=== PATIENT | female | born 1940 | race Caucasian/White ===

== ENCOUNTER 2017-05-24 16:26 | Observation (INO) | payer MEDICARE ==
[~2017-05-24] VITALS: Ht 167.6 cm; Wt 57.0 kg
[2017-05-24] VITALS (7 sets, daily range): BP systolic 154–195; BP diastolic 72–87; PULSE 41–60; RESP 16–20; TEMP 98.7; O2SAT 95–99
[2017-05-24] MEDS ORDERED: HYDR-3115 PO (16:56)
[2017-05-24] MEDS ORDERED: BUPR150CR PO (16:56)
[2017-05-24] MEDS ORDERED: CARV12.5 PO (16:56)
[2017-05-24] MEDS ORDERED: [UNRECOGNIZED DRUG - OTHER] PO (16:56)
[2017-05-24] MEDS ORDERED: CARD180C5 PO (16:56)
[2017-05-24] MEDS ORDERED: COUM3TAB PO (16:56)
[2017-05-24] MEDS ORDERED: PRED5TAB PO (16:56)
[2017-05-24] MEDS ORDERED: SODIUM CHLORIDE 0.9% FLUSH 10 ML FLUSH IVF PRN (17:00)
--- NOTE | 2017-05-24 17:04 | PD ---
HPI Chief Complaint: Cardiac Complaint Time Seen by Provider: 16:51 Travel History International Travel<30 days: No Contact w/Intl Traveler<30days: No Traveled to known affect area: No History of Present Illness HPI 76-year-old female presents by ambulance for low heart rate. Her heart rate has been in the 40s. She states this morning she awoke at 4 AM when she felt like she was in atrial fibrillation so she took her Cardizem early at that time even though she had just taken it at 8 PM and usually only takes it once at night. She states that she's done that before when she had the symptoms that she had this morning. She states she had pain in her shoulder that lasted about 20 minutes and has no pain now. She went to an urgent care and they referred her here for further care. She denies any other concurrent complaints. She is visiting from [place]. [facility] Past Medical History Arthritis: Yes Atrial Fibrillation: Yes Depression: Yes Tetanus Vaccination: Unknown Influenza Vaccination: No ?: Not Menopausal: Yes Past Surgical History Appendectomy: Yes Other Surgery: Yes (ablation September last year) Social History Alcohol Use: No Tobacco Use: No Substance Use: No Allergies-Medications (Allergen,Severity, Reaction): Coded Allergies: azithromycin (Verified Allergy, Severe, rash, 05/24/17) codeine (Verified Allergy, Severe, rash, 05/24/17) Reported Meds & Prescriptions Reported Meds & Active Scripts Active Reported Prednisone 5 Mg Tab 5 Mg PO DAILY Vicodin Hp (Hydrocodone-Acetaminophen) 10-300 Tab 1 Tab PO BID PRN Coreg (Carvedilol) 12.5 Mg Tab 12.5 Mg PO BID Coumadin (Warfarin) 3 Mg Tab 3 Mg PO DAILY [tekazin] 500 Mg PO BID Cardizem CD 24 HR (Diltiazem CD 24 HR) 180 Mg Caper 180 Mg PO DAILY Review of Systems Except as stated in HPI: all other systems reviewed are Neg Physical Exam Narrative GENERAL: Well-nourished, well-developed patient. SKIN: Warm and dry. HEAD: Normocephalic and atraumatic. EYES: No injection or drainage. ENT: No nasal drainage noted. NECK: Supple, trachea midline. CARDIOVASCULAR: Bradycardic rate and regular rhythm RESPIRATORY: Breath sounds equal bilaterally. No accessory muscle use. GASTROINTESTINAL: Abdomen soft, non-tender, nondistended. EXTREMITIES: No edema. NEUROLOGICAL: Awake and alert. Motor and sensory grossly within normal limits. Normal speech. Data Data Last Documented VS Vital Signs Date Time Temp Pulse Resp B/P (MAP) Pulse Ox O2 Delivery O2 Flow Rate FiO2 05/24/17 16:51 Nasal Cannula 2.00 05/24/17 16:49 98.7 41 17 154/72 (99) 97 Orders Orders Electrocardiogram (05/24/17 16:58) Ckmb (Isoenzyme) Profile (05/24/17 16:58) Complete Blood Count With Diff (05/24/17 16:58) Comprehensive Metabolic Panel (05/24/17 16:58) Magnesium (Mg) (05/24/17 16:58) Prothrombin Time / Inr (Pt) (05/24/17 16:58) Act Partial Throm Time (Ptt) (05/24/17 16:58) Troponin I (05/24/17 16:58) Chest, Single Ap (05/24/17 16:58) Ecg Monitoring (05/24/17 16:58) Bilateral Bp Monitoring (05/24/17 16:58) Iv Access Insert/Monitor (05/24/17 16:58) Oximetry (05/24/17 16:58) Sodium Chloride 0.9% Flush (Ns Flush) (05/24/17 17:00) Consult Cardiology (05/24/17 ) (Hub Use Only)Inp Phy Cons/Ref (05/24/17 ) Admit Order (Ed Use Only) (05/24/17 18:08) Labs Laboratory Tests Test 05/24/17 17:00 White Blood Count 10.1 TH/MM3 Red Blood Count 3.80 MIL/MM3 Hemoglobin 10.9 GM/DL Hematocrit 32.8 % Mean Corpuscular Volume 86.4 FL Mean Corpuscular Hemoglobin 28.8 PG Mean Corpuscular Hemoglobin Concent 33.3 % Red Cell Distribution Width 13.9 % Platelet Count 290 TH/MM3 Mean Platelet Volume 7.8 FL Neutrophils (%) (Auto) 75.9 % Lymphocytes (%) (Auto) 15.0 % Monocytes (%) (Auto) 5.7 % Eosinophils (%) (Auto) 2.9 % Basophils (%) (Auto) 0.5 % Neutrophils # (Auto) 7.7 TH/MM3 Lymphocytes # (Auto) 1.5 TH/MM3 Monocytes # (Auto) 0.6 TH/MM3 Eosinophils # (Auto) 0.3 TH/MM3 Basophils # (Auto) 0.0 TH/MM3 CBC Comment DIFF FINAL Differential Comment Prothrombin Time 22.0 SEC Prothromb Time International Ratio 1.9 RATIO Activated Partial Thromboplast Time 36.9 SEC Blood Urea Nitrogen 31 MG/DL Creatinine 1.31 MG/DL Random Glucose 102 MG/DL Total Protein 6.9 GM/DL Albumin 3.3 GM/DL Calcium Level 9.0 MG/DL Magnesium Level 1.9 MG/DL Alkaline Phosphatase 104 U/L Aspartate Amino Transf (AST/SGOT) 24 U/L Alanine Aminotransferase (ALT/SGPT) 23 U/L Total Bilirubin 0.2 MG/DL Sodium Level 138 MEQ/L Potassium Level 4.8 MEQ/L Chloride Level 104 MEQ/L Carbon Dioxide Level 29.1 MEQ/L Anion Gap 5 MEQ/L Estimat Glomerular Filtration Rate 39 ML/MIN Total Creatine Kinase 78 U/L Troponin I LESS THAN 0.02 NG/ML MDM Medical Decision Making Medical Screen Exam Complete: Yes Emergency Medical Condition: Yes Interpretation(s) EKG is sinus bradycardia at 45 without STEMI criteria CBC & BMP Diagram 05/24/17 17:00 Total Protein 6.9, Albumin 3.3 L, Calcium Level 9.0, Magnesium Level 1.9, Alkaline Phosphatase 104, Aspartate Amino Transf (AST/SGOT) 24, Alanine Aminotransferase (ALT/SGPT) 23, Total Bilirubin 0.2 Differential Diagnosis Overmedication, A. fib, LA, electrolyte abnormality Narrative Course Will check blood work, EKG, chest x-ray and monitor. Patient currently without hypotension or chest pain or shortness of breath so we will hold atropine and discuss with cardiology labs without emergent findings, still bradycardic in the 40s, will discuss with cardiology and monitor in the hospital, patient agrees to plan Physician Communication Physician Communication dr smith states will follow dr osman agrees to admit Diagnosis Primary Impression: Bradycardia Jonelle Daigle MD May 24, 2017 17:04
[2017-05-24 17:17] LABS: AUTOMATED NEUTROPHIL # 7.7 TH/MM3 (1.8-7.7); BASOPHIL % 0.5 % (0.0-2.0); EOSINOPHIL # 0.3 TH/MM3 (0-0.4); EOSINOPHIL % 2.9 % (0.0-4.0); HEMATOCRIT 32.8 % (35.0-46.0); HEMO FLAGS DIFF FINAL; LYMPHOCYTE # 1.5 TH/MM3 (1.0-4.8); MEAN CELL VOLUME 86.4 FL (80.0-100.0); MEAN CORPUSCULAR HEMOGLOBIN 28.8 PG (27.0-34.0); MEAN CORPUSCULAR HGB CONC 33.3 % (32.0-36.0); MONO % 5.7 % (0.0-8.0); NEUT % 75.9 % (16.0-70.0); PLATELET COUNT 290 TH/MM3 (150-450); RED CELL DISTRIBUTION WIDTH 13.9 % (11.6-17.2); WHITE BLOOD COUNT 10.1 TH/MM3 (4.0-11.0)
--- NOTE | 2017-05-24 17:24 | RADRPT ---
EXAM DATE/TIME: 05/24/2017 17:01 [facility] COMPARISON: No previous studies available for comparison. INDICATIONS : Irregular heart rate starting this morning MEDICAL HISTORY : Atrial fibrillation SURGICAL HISTORY : None. ENCOUNTER: Initial ACUITY: 1 day PAIN SCORE: 0/10 LOCATION: Bilateral chest FINDINGS: Mild interstitial prominence, most notably in the lung bases bilaterally. Cardiac mediastinal contour s are within normal limits. Bilateral peripherally calcified breast implants. Bony thorax is intact. CONCLUSION: 1. Mild lower lobe predominant interstitial prominence of unknown chronicity given lack of prior exam s. 2. Otherwise, no acute cardiopulmonary disease. Antonio Sears MD on May 24, 2017 at 17:21 Board Certified Radiologist. This report was verified electronically.
[2017-05-24 17:36] LABS: ANION GAP 5 MEQ/L (5-15); AST (GOT) 24 U/L (15-37); BICARBONATE 29.1 MEQ/L (21.0-32.0); BLOOD UREA NITROGEN 31 MG/DL (7-18); CHLORIDE 104 MEQ/L (98-107); GLOMERULAR FILTRATION RATE 39 ML/MIN (>89); MAGNESIUM 1.9 MG/DL (1.5-2.5); POTASSIUM 4.8 MEQ/L (3.5-5.1); SODIUM (NA) 138 MEQ/L (136-145)
[2017-05-24 17:37] LABS: ALT (GPT) 23 U/L (10-53)
[2017-05-24 17:40] LABS: APTT (PATIENT) 36.9 SEC (24.3-30.1); INTERNATIONAL NORMALIZED RATIO 1.9 RATIO
[2017-05-24 17:41] LABS: ALKALINE PHOSPHATASE 104 U/L (45-117); TOTAL BILIRUBIN ADULT 0.2 MG/DL (0.2-1.0)
[2017-05-24 17:48] LABS: CREATINE KINASE 78 U/L (26-192)
--- NOTE | 2017-05-24 18:16 | HHI.HP ---
HPI Service [facility] Primary Care Physician Non-Staff Admission Diagnosis Diagnoses: Chief Complaint: Atrial Fibrillation Travel History International Travel<30 Days: No Contact w/Intl Traveler <30 Da: No Traveled to Known Affected Are: No History of Present Illness This is a pleasant 76 y/o Female who was brought in by EMS, due to Bradycardia, she is been on the 40s, She states this morning she awoke at 4 AM when she felt like she was in atrial fibrillation so she took her Cardizem early at that time even though she had just taken it at 8 PM and usually only takes it once at night. She states that she's done that before when she had the symptoms that she had this morning. She states she had pain in her shoulder that lasted about 20 minutes and has no pain now. She went to an urgent care and they referred her here for further care. She denies any other concurrent complaints. She is visiting from [place] Seen in her bedroom in the presence of her Daughter Mrs. Shyann Gustafson, no complaint at this time, but confirm the story told to the ER physician Review of Systems Constitutional: DENIES: Fever, Chills, Change in appetite Endocrine: DENIES: Heat/cold intolerance Eyes: DENIES: Blurred vision, Eye pain Except as stated in HPI: all other systems reviewed are Neg Past Family Social History Past Medical History OA Atrial Fibrillation Depression Dermatomyositis Past Surgical History Appendectomy Ablation September last year Cataract surgery tonsillectomy Breast augmentation PIPER Reported Medications Reported Meds & Active Scripts Active Reported Prednisone 5 Mg Tab 5 Mg PO DAILY Vicodin Hp (Hydrocodone-Acetaminophen) 10-300 Tab 1 Tab PO BID PRN Coreg (Carvedilol) 12.5 Mg Tab 12.5 Mg PO BID Coumadin (Warfarin) 3 Mg Tab 3 Mg PO DAILY [tekazin] 500 Mg PO BID Cardizem CD 24 HR (Diltiazem CD 24 HR) 180 Mg Caper 180 Mg PO DAILY Allergies: Coded Allergies: azithromycin (Verified Allergy, Severe, rash, 05/24/17) codeine (Verified Allergy, Severe, rash, 05/24/17) Active Ordered Medications Current Medications Medications (Trade) Dose Ordered Sig/Shanthi Route Start Time Stop Time Status Last Admin (NS Flush) 2 ml UNSCH PRN IVF 05/24/17 17:00 (Wellbutrin Sr) 150 mg Q12HR PO 05/24/17 21:00 (Martin 10-325 Mg) 1 tab BID PRN PO 05/24/17 18:30 UNV (Deltasone) 5 mg DAILY PO 05/25/17 09:00 (Coumadin) 3 mg DAILY@1600 PO 05/25/17 16:00 Sodium Chloride 1,000 ml @ 83 mls/hr Q12H3M IV 05/24/17 19:00 (NS Flush) 2 ml BID IV FLUSH 05/24/17 21:00 (Tylenol) 650 mg Q4H PRN PO 05/24/17 18:30 (Zofran Inj) 4 mg Q6H PRN IVP 05/24/17 18:30 (Heparin Inj) 5,000 units Q12H SQ 05/24/17 20:00 (Narcan Inj) 0.4 mg UNSCH PRN IV PUSH 05/24/17 18:30 (Christy-Colace) 1 tab BID PO 05/24/17 21:00 (Milk Of Magnesia Liq) 30 ml Q12H PRN PO 05/24/17 18:30 (Senokot) 17.2 mg Q12H PRN PO 05/24/17 18:30 (Dulcolax Supp) 10 mg DAILY PRN RECTAL 05/24/17 18:30 (Lactulose Liq) 30 ml DAILY PRN PO 05/24/17 18:30 (Coumadin Booklet) 1 ONCE ONCE OTHER 05/25/17 16:00 05/25/17 16:01 Family History Father and Brother with ACS Mother with DM II Social History Lives by her self Denies any toxic habits. Physical Exam Vital Signs Vital Signs Date Time Temp Pulse Resp B/P (MAP) Pulse Ox O2 Delivery O2 Flow Rate FiO2 05/24/17 16:51 Nasal Cannula 2.00 05/24/17 16:49 98.7 41 17 154/72 (99) 97 Physical Exam GENERAL: Well-nourished, well-developed patient. SKIN: Warm and dry. HEAD: Normocephalic and atraumatic. EYES: No injection or drainage. ENT: No nasal drainage noted. NECK: Supple, trachea midline. CARDIOVASCULAR: Bradycardic rate and regular rhythm RESPIRATORY: Breath sounds equal bilaterally. No accessory muscle use. GASTROINTESTINAL: Abdomen soft, non-tender, nondistended. EXTREMITIES: No edema. NEUROLOGICAL: Awake and alert. Motor and sensory grossly within normal limits. Normal speech. Laboratory Laboratory Tests Test 05/24/17 17:00 White Blood Count 10.1 Red Blood Count 3.80 Hemoglobin 10.9 Hematocrit 32.8 Mean Corpuscular Volume 86.4 Mean Corpuscular Hemoglobin 28.8 Mean Corpuscular Hemoglobin Concent 33.3 Red Cell Distribution Width 13.9 Platelet Count 290 Mean Platelet Volume 7.8 Neutrophils (%) (Auto) 75.9 Lymphocytes (%) (Auto) 15.0 Monocytes (%) (Auto) 5.7 Eosinophils (%) (Auto) 2.9 Basophils (%) (Auto) 0.5 Neutrophils # (Auto) 7.7 Lymphocytes # (Auto) 1.5 Monocytes # (Auto) 0.6 Eosinophils # (Auto) 0.3 Basophils # (Auto) 0.0 CBC Comment DIFF FINAL Differential Comment Prothrombin Time 22.0 Prothromb Time International Ratio 1.9 Activated Partial Thromboplast Time 36.9 Blood Urea Nitrogen 31 Creatinine 1.31 Random Glucose 102 Total Protein 6.9 Albumin 3.3 Calcium Level 9.0 Magnesium Level 1.9 Alkaline Phosphatase 104 Aspartate Amino Transf (AST/SGOT) 24 Alanine Aminotransferase (ALT/SGPT) 23 Total Bilirubin 0.2 Sodium Level 138 Potassium Level 4.8 Chloride Level 104 Carbon Dioxide Level 29.1 Anion Gap 5 Estimat Glomerular Filtration Rate 39 Total Creatine Kinase 78 Troponin I LESS THAN 0.02 Result Diagram: 05/24/17169905/24/171699 Caprini VTE Risk Assessment Caprini VTE Risk Assessment: Mod/High Risk (score >= 2) Caprini Risk Assessment Model Point Value = 1 Point Value = 2 Point Value = 3 Point Value = 5 Age 41-60 Minor surgery BMI > 25 kg/m2 Swollen legs Varicose veins or History of unexplained or recurrent spontaneous Oral contraceptives or hormone replacement Sepsis (< 1 month) Serious lung disease, including pneumonia (< 1 month) Abnormal pulmonary function Acute myocardial infarction Congestive heart failure (< 1 month) History of inflammatory bowel disease Medical patient at bed rest Age 61-74 Arthroscopic surgery Major open surgery (> 45 min) Laparoscopic surgery (> 45 min) Malignancy Confined to bed (> 72 hours) Immobilizing plaster cast Central venous access Age >= 75 History of VTE Family history of VTE Factor V Leiden Prothrombin [id number] Lupus anticoagulant Anticardiolipin antibodies Elevated serum homocysteine Heparin-induced thrombocytopenia Other congenital or acquired thrombophilia Stroke (< 1 month) Elective arthroplasty Hip, pelvis, or leg fracture Acute spinal cord injury (< 1 month) Prophylaxis Regimen Total Risk Factor Score Risk Level Prophylaxis Regimen 0-1 Low Early ambulation 2 Moderate Order ONE of the following: *Sequential Compression Device (SCD) *Heparin 5000 units SQ BID 3-4 Higher Order ONE of the following medications: *Heparin 5000 units SQ TID *Enoxaparin/Lovenox 40 mg SQ daily (WT < 150 kg, CrCl > 30 mL/min) *Enoxaparin/Lovenox 30 mg SQ daily (WT < 150 kg, CrCl > 10-29 mL/min) *Enoxaparin/Lovenox 30 mg SQ BID (WT < 150 kg, CrCl > 30 mL/min) AND/OR *Sequential Compression Device (SCD) 5 or more Highest Order ONE of the following medications: *Heparin 5000 units SQ TID (Preferred with Epidurals) *Enoxaparin/Lovenox 40 mg SQ daily (WT < 150 kg, CrCl > 30 mL/min) *Enoxaparin/Lovenox 30 mg SQ daily (WT < 150 kg, CrCl > 10-29 mL/min) *Enoxaparin/Lovenox 30 mg SQ BID (WT < 150 kg, CrCl > 30 mL/min) AND *Sequential Compression Device (SCD) Assessment and Plan Assessment and Plan 1. Bradycardia probable related to Overmedication discussed with deployment specialist doctor Michelle and recommended for Observation and he will follow 2. Atrial Fibrillation status post Ablation at this time in sinus rhythm. and bradycardia 3. OA by history 4. Depression to continue Home medicines. 5. Dermatomyositis with proximal weakness and Dysphagia but followed by her sales administration specialist DVT prophylaxis with Heparin. Code Status Full code. Discussed Condition With patient and her Daughter Mrs. Shyann Gustafson, all questions answered to the best of my abilities. Jonelle Daigle MD, Guillermo MD May 24, 2017 18:15
[2017-05-24] MEDS ORDERED: ONDANSETRON HCL 4 MG/2 ML VIAL IVP PRN (18:30)
[2017-05-24] MEDS ORDERED: NALOXONE HCL 0.4 MG/ML AMP IV PUSH PRN (18:30)
[2017-05-24] MEDS ORDERED: MAGNESIUM HYDROXIDE SUSP 30 ML CUP PO PRN (18:30)
[2017-05-24] MEDS ORDERED: LACTULOSE SYRUP 20 GM/30 ML CUP PO PRN (18:30)
[2017-05-24] MEDS ORDERED: BISACODYL 10 MG SUPP RECTAL PRN (18:30)
[2017-05-24] MEDS ORDERED: SENNOSIDES 8.6 MG TAB PO PRN (18:30)
[2017-05-24] MEDS ORDERED: ACETAMINOPHEN 325 MG TAB PO PRN (18:30)
[2017-05-24] MEDS ORDERED: SODIUM CHLORIDE 0.9% FLUSH 10 ML FLUSH IV FLUSH PRN (18:30)
[2017-05-24] MEDS: DOCUSATE SODIUM 50 MG/SENNA 8.6 MG TAB PO SCH (21:00)
[2017-05-24] MEDS: SODIUM CHLOR 0.9% 1000 ML INJ 1,000 ML IV SCH (21:02)
[2017-05-24] MEDS: SODIUM CHLORIDE 0.9% FLUSH 10 ML FLUSH IV FLUSH SCH (21:03)
[2017-05-24] MEDS: HEPARIN SODIUM - SQ 10,000 UNITS/ML VIAL SQ SCH (21:04)
[2017-05-24 22:05] LABS: CREATINE KINASE 70 U/L (26-192)
--- NOTE | 2017-05-24 22:08 | MB ---
cc: DAVID KELLY MD DATE OF CONSULTATION 05/24/17 HISTORY OF PRESENT ILLNESS Ms. Bryant is a 76-year white female. She is visiting from [place], with a history of paroxysmal atrial fibrillation. She took her diltiazem and Tikosyn last night. She woke up at 4 o'clock this morning and felt she had atrial fibrillation when she took her diltiazem at 4 o'clock in the morning and subsequently went to Urgent Care and was found to be bradycardic, in the 40s. She has not had any chest pain. She had pain in her shoulder which lasted about 20 minutes. Currently, she has no pain, shortness of breath, dizziness. PAST MEDICAL HISTORY Positive for paroxysmal atrial fibrillation, depression, dermatomyositis, osteoarthritis, history of atrial fibrillation ablation last year. She had last occurrence about 4 months ago. History of appendectomy, cataract surgery, tonsillectomy, breast augmentation, ___. MEDICATIONS 1. Tikosyn 500 milligrams twice a day. 2. Diltiazem CD 180 milligrams a day. 3. Coumadin 3 milligrams a day. 4. Coreg 12.5 milligrams twice a day. 5. Vicodin. 6. Prednisone. ALLERGIES AZITHROMYCIN AND CODEINE. SOCIAL HISTORY The patient does not smoke. She does not drink alcohol. She is accompanied by her daughter. FAMILY HISTORY Positive for heart disease in her brother and her father. REVIEW OF SYSTEMS Otherwise negative. PHYSICAL EXAMINATION VITAL SIGNS: Blood pressure 178/83, pulse 44 and regular. HEENT: Negative. NECK: 2+ carotid upstrokes. No bruits. LUNGS: Clear. HEART: Regular, bradycardic with no murmur, ___. ABDOMEN: Soft. No bruits. EXTREMITIES: Without edema. 2+ distal pulses. NEUROLOGIC: Grossly nonfocal. CARDIOLOGY STUDIES EKG was reviewed and showed sinus bradycardia and no acute changes. LABORATORY DATA Hemoglobin 10.9, potassium 4.8, creatinine 1.3. AST, ALT normal. Troponin normal. CK 78. DIAGNOSIS 1. Paroxysmal atrial fibrillation. 2. Sinus bradycardia. 3. Status post atrial fibrillation ablation. DISPOSITION Ms. Bryant will be monitored on telemetry. She has not had any symptoms with her bradycardia. We will hold her diltiazem but continue her Tikosyn 500 milligrams every 12 hours. She will continue anticoagulation with warfarin. We will obtain serial enzymes and EKGs. If she remains stable and rules out for myocardial infarction she might be able to be discharged tomorrow. She will follow up with her physicians in [place] after discharge. MD MEGHANN Arellano/SHELDON /8:42 PM /9:41 PM
[2017-05-24] MEDS: cloNIDine HCL 0.1 MG TAB PO PRN (22:27)
[2017-05-24] MEDS: buPROPion HCL 150 MG SUSTAINED RELEASE TAB PO SCH (22:27)
[2017-05-24] MEDS ORDERED: hydrALAZINE HCL 20 MG/ML VIAL IV PUSH PRN (23:45)
[2017-05-25] VITALS (17 sets, daily range): BP systolic 119–196; BP diastolic 67–87; PULSE 61–75; RESP 15–18; TEMP 97.5–98.3; O2SAT 95–97
[2017-05-25] MEDS: ACETAMINOPHEN/HYDROcodone 325 MG/10 MG TAB PO PRN ×2 (00:12→11:57)
[2017-05-25] MEDS ORDERED: ACETAMINOPHEN/HYDROcodone 325 MG/10 MG TAB PO ONE (02:15)
[2017-05-25 02:20] LABS: CREATINE KINASE 71 U/L (26-192)
[2017-05-25] MEDS ORDERED: DOFE1CAP PO (03:06)
[2017-05-25 08:19] LABS: AUTOMATED NEUTROPHIL # 4.2 TH/MM3 (1.8-7.7); BASOPHIL # 0.1 TH/MM3 (0-0.2); BASOPHIL % 0.6 % (0.0-2.0); EOSINOPHIL # 0.4 TH/MM3 (0-0.4); EOSINOPHIL % 4.6 % (0.0-4.0); HEMATOCRIT 30.2 % (35.0-46.0); HEMO FLAGS DIFF FINAL; LYMPH % 39.5 % (9.0-44.0); LYMPHOCYTE # 3.6 TH/MM3 (1.0-4.8); MEAN CELL VOLUME 85.7 FL (80.0-100.0); MEAN CORPUSCULAR HEMOGLOBIN 28.8 PG (27.0-34.0); MEAN CORPUSCULAR HGB CONC 33.7 % (32.0-36.0); MONO % 8.9 % (0.0-8.0); NEUT % 46.4 % (16.0-70.0); PLATELET COUNT 276 TH/MM3 (150-450); RED BLOOD COUNT 3.52 MIL/MM3 (4.00-5.30); RED CELL DISTRIBUTION WIDTH 13.6 % (11.6-17.2)
[2017-05-25 08:31] LABS: BICARBONATE 28.9 MEQ/L (21.0-32.0); POTASSIUM 3.5 MEQ/L (3.5-5.1)
[2017-05-25] MEDS: DOCUSATE SODIUM 50 MG/SENNA 8.6 MG TAB PO SCH (08:31)
[2017-05-25] MEDS: HEPARIN SODIUM - SQ 10,000 UNITS/ML VIAL SQ SCH (08:31)
[2017-05-25] MEDS: SODIUM CHLORIDE 0.9% FLUSH 10 ML FLUSH IV FLUSH SCH (08:32)
[2017-05-25] MEDS: SODIUM CHLOR 0.9% 1000 ML INJ 1,000 ML IV SCH (08:42)
[2017-05-25] MEDS: buPROPion HCL 150 MG SUSTAINED RELEASE TAB PO SCH (08:42)
[2017-05-25] MEDS ORDERED: predniSONE 5 MG TAB PO SCH (09:00)
[2017-05-25] MEDS ORDERED: DOFE500 PO (09:55)
[2017-05-25] MEDS: cloNIDine HCL 0.1 MG TAB PO PRN ×2 (11:55→18:38)
[2017-05-25] MEDS ORDERED: hydrALAZINE HCL 25 MG TAB PO ONE (14:00)
--- NOTE | 2017-05-25 14:04 | EKG ---
Date Performed: 05/24/2017 Time Performed: 16:59:06 PTAGE: 76 years EKG: Ectopic atrial bradycardia BORDERLINE ECG NO PREVIOUS TRACING DOCTOR: Isael Dobson Interpretating Date/Time 05/25/2017 14:03:09
[2017-05-25] MEDS ORDERED: WARFARIN SOD 3 MG TAB PO SCH (16:00)
[2017-05-25] MEDS ORDERED: HYDR-3801 PO (16:10)
--- NOTE | 2017-05-25 16:10 | HHI.DCPOC ---
Discharge Care Plan Diagnosis: (1) Hypertension (2) Bradycardia Goals to Promote Your Health * To prevent worsening of your condition and complications * To maintain your health at the optimal level Directions to Meet Your Goals Take your medications as prescribed Follow your dietary instruction Follow activity as directed Keep your appointments as scheduled Take your immunizations and boosters as scheduled If your symptoms worsen call your PCP, if no PCP go to Urgent Care Center or Emergency Room Smoking is Dangerous to Your Health. Avoid second hand smoke Call the 24-hour hour crisis hotline for domestic abuse at Shannan Figueredo PA-C May 25, 2017 16:10
[2017-05-25] MEDS ORDERED: CARD120C4 PO (16:13)
[2017-05-25] MEDS ORDERED: DILTIAZEM HCL 30 MG TAB PO ONE (16:15)
--- NOTE | 2017-05-25 17:31 | PD.CARD.PN ---
Subjective Subjective Remarks No CP, SOB, or dizziness, HR now normalized off dilt Objective Medications Administered Medications Medications (Trade) Dose Ordered Sig/Shanthi Route PRN Reason Start Time Stop Time Status Last Admin Dose Admin Bupropion HCl (Wellbutrin Sr) 150 mg Q12HR PO 05/24/17 21:00 05/25/17 08:42 Acetaminophen/ Hydrocodone Bitart (Lutz 10-325 Mg) 1 tab BID PRN PO PAIN 05/24/17 18:30 05/25/17 11:57 Prednisone (Deltasone) 5 mg DAILY PO 05/25/17 09:00 05/25/17 08:31 Warfarin Sodium (Coumadin) 3 mg DAILY@1600 PO 05/25/17 16:00 05/25/17 16:24 Sodium Chloride 1,000 ml @ 83 mls/hr Q12H3M IV 05/24/17 19:00 05/25/17 08:42 Sodium Chloride (NS Flush) 2 ml BID IV FLUSH 05/24/17 21:00 05/24/17 21:03 Heparin Sodium (Porcine) (Heparin Inj) 5,000 units Q12H SQ 05/24/17 20:00 05/25/17 08:31 Senna/Docusate Sodium (Christy-Colace) 1 tab BID PO 05/24/17 21:00 05/25/17 08:31 Clonidine (Catapres) 0.1 mg Q6H PRN PO SBP>160, DBP>90 05/24/17 18:45 05/25/17 11:55 Vital Signs / I&O Vital Signs Date Time Temp Pulse Resp B/P (MAP) Pulse Ox O2 Delivery O2 Flow Rate FiO2 05/25/17 16:47 180/84 (116) 05/25/17 14:50 97.8 71 18 175/76 (109) 97 05/25/17 13:44 177/80 (112) 05/25/17 13:40 66 196/81 (119) 05/25/17 11:48 98.3 63 15 180/76 (110) 97 05/25/17 07:20 98.2 71 18 177/75 (109) 95 05/25/17 04:26 97.5 66 18 166/67 (100) 96 05/25/17 04:00 61 05/25/17 03:27 12 05/25/17 02:10 97.6 67 18 169/72 (104) 97 05/25/17 01:25 05/25/17 00:54 71 162/71 (101) 05/25/17 00:31 75 171/78 (109) 05/25/17 00:07 67 18 177/75 (109) 97 Room Air 05/24/17 23:45 59 18 183/84 (117) 95 Room Air 05/24/17 23:24 60 16 195/86 (122) 96 Room Air 05/24/17 22:24 55 20 186/86 (119) 96 Room Air 05/24/17 19:21 51 20 184/87 (119) 99 Room Air 05/24/17 18:19 44 18 178/83 (114) 97 Nasal Cannula 2.00 05/24/17 18:18 172/78 (109) 178/83 (114) 05/24/17 18:18 97 Room Air I/O 05/24/17 05/24/17 05/24/17 05/25/17 05/25/17 05/25/17 07:00 15:00 23:00 07:00 15:00 23:00 Intake Total 930 ml Balance 930 ml Intake IV Total 930 ml # Voids 2 2 1 Physical Exam GENERAL: In NAD SKIN: Warm and dry. HEAD: Normocephalic. EYES: No scleral icterus. No injection or drainage. NECK: Supple, trachea midline. No JVD or lymphadenopathy. CARDIOVASCULAR: Regular rate and rhythm without murmurs, gallops, or rubs. RESPIRATORY: Breath sounds equal bilaterally. No accessory muscle use. GASTROINTESTINAL: Abdomen soft, non-tender, nondistended. MUSCULOSKELETAL: No cyanosis, or edema. Laboratory Laboratory Tests Test 05/24/17 20:50 05/25/17 01:20 05/25/17 07:00 Total Creatine Kinase 70 U/L 71 U/L Troponin I LESS THAN 0.02 NG/ML LESS THAN 0.02 NG/ML White Blood Count 9.0 TH/MM3 Red Blood Count 3.52 MIL/MM3 Hemoglobin 10.1 GM/DL Hematocrit 30.2 % Mean Corpuscular Volume 85.7 FL Mean Corpuscular Hemoglobin 28.8 PG Mean Corpuscular Hemoglobin Concent 33.7 % Red Cell Distribution Width 13.6 % Platelet Count 276 TH/MM3 Mean Platelet Volume 8.2 FL Neutrophils (%) (Auto) 46.4 % Lymphocytes (%) (Auto) 39.5 % Monocytes (%) (Auto) 8.9 % Eosinophils (%) (Auto) 4.6 % Basophils (%) (Auto) 0.6 % Neutrophils # (Auto) 4.2 TH/MM3 Lymphocytes # (Auto) 3.6 TH/MM3 Monocytes # (Auto) 0.8 TH/MM3 Eosinophils # (Auto) 0.4 TH/MM3 Basophils # (Auto) 0.1 TH/MM3 CBC Comment DIFF FINAL Differential Comment Blood Urea Nitrogen 19 MG/DL Creatinine 0.76 MG/DL Random Glucose 90 MG/DL Calcium Level 8.8 MG/DL Sodium Level 142 MEQ/L Potassium Level 3.5 MEQ/L Chloride Level 107 MEQ/L Carbon Dioxide Level 28.9 MEQ/L Anion Gap 6 MEQ/L Estimat Glomerular Filtration Rate 74 ML/MIN Assessment and Plan Problem List: (1) Paroxysmal atrial fibrillation ICD Codes: I48.0 - Paroxysmal atrial fibrillation (2) Bradycardia ICD Codes: R00.1 - Bradycardia, unspecified Status: Acute (3) Hypertension ICD Codes: I10 - Essential (primary) hypertension Assessment and Plan Rate now normal off diltiazem. No recurrent a fib. Continue Tikosyn. Restart diltiazem at lower dose. Continue monitoring on telemetry. Home tomorrow if stable. F/u with her filemaker developer in [place]. Augusto Martinez MD May 25, 2017 17:31
[2017-05-25] MEDS ORDERED: hydrALAZINE HCL 50 MG TAB PO SCH (18:00)
--- NOTE | 2017-05-25 18:01 | HHI.PR ---
Subjective Remarks Follow up for bradycardia, palpitations, with history of paroxysmal afib. The patient reports feeling fine today, denies any chest pain, palpitations, or shortness of breath. Heart rate has been in the 70s on telemetry. She is upset that she is still in the hospital. She was upset this morning that her Tikosyn wasn't restarted, however I had restarted the medication this morning but the patient already decided to take her own meds. The patient adamantly wants to go home. The patient states she's leaving here tonight "no matter what". Objective Vitals Vital Signs Date Time Temp Pulse Resp B/P (MAP) Pulse Ox O2 Delivery O2 Flow Rate FiO2 05/25/17 16:47 180/84 (116) 05/25/17 16:00 72 05/25/17 14:50 97.8 71 18 175/76 (109) 97 05/25/17 13:44 177/80 (112) 05/25/17 13:40 66 196/81 (119) 05/25/17 11:48 98.3 63 15 180/76 (110) 97 05/25/17 07:20 98.2 71 18 177/75 (109) 95 05/25/17 04:26 97.5 66 18 166/67 (100) 96 05/25/17 04:00 61 05/25/17 03:27 12 05/25/17 02:10 97.6 67 18 169/72 (104) 97 05/25/17 01:25 05/25/17 00:54 71 162/71 (101) 05/25/17 00:31 75 171/78 (109) 05/25/17 00:07 67 18 177/75 (109) 97 Room Air 05/24/17 23:45 59 18 183/84 (117) 95 Room Air 05/24/17 23:24 60 16 195/86 (122) 96 Room Air 05/24/17 22:24 55 20 186/86 (119) 96 Room Air 05/24/17 19:21 51 20 184/87 (119) 99 Room Air 05/24/17 18:19 44 18 178/83 (114) 97 Nasal Cannula 2.00 05/24/17 18:18 172/78 (109) 178/83 (114) 05/24/17 18:18 97 Room Air I/O 05/24/17 05/24/17 05/24/17 05/25/17 05/25/17 05/25/17 07:00 15:00 23:00 07:00 15:00 23:00 Intake Total 930 ml Balance 930 ml Intake IV Total 930 ml # Voids 2 2 1 Result Diagram: 05/25/17 0700 05/25/17 0700 Imaging Last Impressions Chest X-Ray 05/24/17 4348 Signed Impressions: Service Date/Time: Wednesday, May 24, 2017 17:01 - CONCLUSION: 1. Mild lower lobe predominant interstitial prominence of unknown chronicity given lack of prior exams. 2. Otherwise, no acute cardiopulmonary disease. Antonio Sears MD Objective Remarks GENERAL: Well-nourished, well-developed elderly female patient in [facility]. SKIN: Warm and dry. No rash. HEENT: Normocephalic. Atraumatic.Pupils equal and round. Mucous membranes pink and moist. CARDIOVASCULAR: Regular rate and rhythm. S1, S2 noted. No murmur appreciated. RESPIRATORY: No accessory muscle use. Clear to auscultation. Breath sounds equal bilaterally. GASTROINTESTINAL: Abdomen soft, non-tender, nondistended. Normoactive bowel sounds x4. MUSCULOSKELETAL: No obvious deformities. Extremities without clubbing, cyanosis , or edema. NEUROLOGICAL: Awake and alert. No obvious cranial nerve deficits. Motor grossly within normal limits. Normal speech. PSYCHIATRIC: Anxious and agitated; insight and judgment normal. Medications and IVs Current Medications Medications (Trade) Dose Ordered Sig/Shanthi Route Start Time Stop Time Status Last Admin (NS Flush) 2 ml UNSCH PRN IVF 05/24/17 17:00 (Wellbutrin Sr) 150 mg Q12HR PO 05/24/17 21:00 05/25/17 08:42 ([place] 10-325 Mg) 1 tab BID PRN PO 05/24/17 18:30 05/25/17 11:57 (Deltasone) 5 mg DAILY PO 05/25/17 09:00 05/25/17 08:31 (Coumadin) 3 mg DAILY@1600 PO 05/25/17 16:00 05/25/17 16:24 Sodium Chloride 1,000 ml @ 83 mls/hr Q12H3M IV 05/24/17 19:00 05/25/17 08:42 (NS Flush) 2 ml BID IV FLUSH 05/24/17 21:00 05/24/17 21:03 (Tylenol) 650 mg Q4H PRN PO 05/24/17 18:30 (Zofran Inj) 4 mg Q6H PRN IVP 05/24/17 18:30 (Heparin Inj) 5,000 units Q12H SQ 05/24/17 20:00 05/25/17 08:31 (Narcan Inj) 0.4 mg UNSCH PRN IV PUSH 05/24/17 18:30 (Christy-Colace) 1 tab BID PO 05/24/17 21:00 05/25/17 08:31 (Milk Of Magnesia Liq) 30 ml Q12H PRN PO 05/24/17 18:30 (Senokot) 17.2 mg Q12H PRN PO 05/24/17 18:30 (Dulcolax Supp) 10 mg DAILY PRN RECTAL 05/24/17 18:30 (Lactulose Liq) 30 ml DAILY PRN PO 05/24/17 18:30 (Catapres) 0.1 mg Q6H PRN PO 05/24/17 18:45 05/25/17 11:55 (Tikosyn) 500 mcg BID PO 05/25/17 21:00 (Apresoline) 50 mg TID PO 05/25/17 18:00 A/P Assessment and Plan 76-year-old female with history of paroxysmal atrial fibrillation, hypertension , presents with palpitations Paroxysmal Atrial Fibrillation with Bradycardia: patient likely went into afib prior to arrival, took multiple doses of Cardizem, now with subsequent bradycardia HR 40s upon arrival. -Initially held patient's cardizem, coreg, and Tikosyn -Consulted cardiology, recommended restarting Tikosyn and low dose Cardizem -Heart rate back in NSR, HR in 70s on telemetry -patient's symptoms resolved, cleared by Dr. Martinez for discharge when blood pressure is better controlled Accelerated Hypertension: likely secondary to holding medications due to bradycardia in combination with severe anxiety -restarted patient's Tikosyn and slowly add low dose of Cardizem -clonidine prn -started on Hydralazine 50mg tid -BP slowly improving however patient very upset she's not discharged, likely contributing to elevated BP, suspect patient may end up leaving AMA if BP still not better controlled by this evening DVT Prophylaxis: Heparin sq Discharge Planning Plan to discharge when BP better controlled with systolic around 160s or less. Discharge patient to home Condition on discharge: Improved Heart Healthy Diet as tolerated Ad Lynda activity Rx written: cardizem 120mg daily, hydralazine 50mg tid Follow-up with primary care physician and cardiology Shannan Figueredo PA-C May 25, 2017 6:01 pm
[2017-05-25] MEDS ORDERED: hydrALAZINE HCL 25 MG TAB PO PRN (20:00)
[2017-05-25] MEDS ORDERED: DOFETILIDE 500 MCG CAP PO SCH (21:00)
--- NOTE | 2017-05-26 13:11 | EKG ---
Date Performed: 05/25/2017 Time Performed: 11:19:40 PTAGE: 76 years EKG: Sinus rhythm NORMAL ECG INTERPRETATION BASED ON A DEFAULT AGE OF 40 YEARS PREVIOUS TRACING : 05/24/2017 16.59 Compared to prior tracing no significant change DOCTOR: Camron Dowell Interpretating Date/Time 05/26/2017 13:09:50
== END 2017-05-25 20:19 | disposition home or self-care (01) ==
LOC: NEPE 16:26 → NEDA 18:09 → INTOOBSV 18:09 → NEDH 05-25 00:06 → NEPHCDU 05-25 01:28
PROVIDERS: ADMIT Internal Medicine; ATTEND Internal Medicine
DX: I48.0 Paroxysmal atrial fibrillation (principal); I10 Essential (primary) hypertension; R00.1 Bradycardia, unspecified; M25.519 Pain in unspecified shoulder; M19.90 Unspecified osteoarthritis, unspecified site; M33.13 Other dermatomyositis without myopathy; Z79.01 Long term (current) use of anticoagulants
CPT/HCPCS: 71010; 80048; 80053; 82550; 83735; 84484; 85025; 85610; 85730; 93005; 96361; 96372; 96374; 99285; G0378; J0360; J1644; J7030; J7512